=== PATIENT | female | born 1965 | race Two or more races ===

== ENCOUNTER 2024-11-08 17:47 | Emergency (ER) | payer MEDICAID, SELFPAY ==
[2024-11-08 17:48] VITALS: BMI 27.3
[2024-11-08 17:54] VITALS: BP 134/83; PULSE 93; RESP 16; TEMP 37.2; O2SAT 96; BMI 23.3
--- NOTE | 2024-11-08 18:22 | XR_ITS ---
Examination: Knee, right , 3 views Technique: Knee AP, lateral, oblique 3 views Date and time of exam: 1821 hours INDICATIONS: Twisting injury to knee 2 days ago, knee pain FINDINGS: No fracture or dislocation. No foreign body IMPRESSION: No fracture or dislocation
--- NOTE | 2024-11-08 19:11 | EDNOTE_ITS ---
Lower Extremity Injury RME/HPI General Chief Complaint: Extremity Injury, Lower Stated Complaint: RIGHT KNEE PAIN Time Seen by Provider: 11/08/24 18:16 Arrival date/time: 11/08/24 17:47 This is a caseof 59 year old female came in wiht right knee pain s/p twisting incident 2 days ago in [facility] since then patient started to have pain and swelling on the right knee negative swelling on the right lower leg Limitations: no limitations Related Data Previous Rx's ?Medication ?Instructions ?Recorded meloxicam 15 mg tablet 15 mg PO QDAY PRN arthritis pain 11/08/24 #10 tabs tramadol 50 mg tablet 50 mg PO Q6H PRN pain, sever e #12 11/08/24 tabs Allergies Allergy/AdvReac Type Severity Reaction Status Date / Time NKA* Allergy Uncoded 11/08/24 17:50 Review of Systems Review of Systems Systems Reviewed: All systems reviewed, normal except as documented Constitutional Constitutional: Reports system reviewed and no additional complaints, except as documented Eyes Eyes: Reports system reviewed and no additional complaints, except as documented ENT Ears, Nose, Mouth, and Throat: Reports system reviewed and no additional complaints, except as documented and Denies neck pain Cardiovascular Cardiovascular: Reports system reviewed and no additional complaints, except as documented Respiratory Respiratory: Reports system reviewed and no additional complaints, except as documented Genitourinary Genitourinary: Reports system reviewed and no additional complaints, except as documented Musculoskeletal Musculoskeletal: Reports system reviewed and no additional complaints, except as documented, Reports arthralgias, Denies atrophy, Denies back pain, Denies deformity, Denies joint swelling, Reports limited range of motion, Denies loss of height, Denies muscle cramps, Denies muscle weakness, Denies myalgias, Denies neck pain, Denies numbness, Denies radiating pain into limb, Denies stiffness and Denies tingling Integumentary/Breasts Skin/Breast: Reports system reviewed and no additional complaints, except as documented Neurologic Neurologic: Reports system reviewed and no additional complaints, except as documented, Denies numbness and Denies tingling Past Medical History Past Medical History NEUROLOGIC: Negative Neurological Disorders or Seizures CARDIAC: Negative Cardiac Disorders or Congestive Heart Failure RESPIRATORY: Negative Chronic Obstructive Pulmonary Disease (COPD) GASTROINTESTINAL: Negative Gastrointestinal Disorders GENITOURINARY: Negative Genitourinary Disorders or Renal Disease REPRODUCTIVE: Positive Previous Pregnancies MUSCULOSKELETAL: Positive Musculoskeletal Disorders and Fractures (left forearm) ENDOCRINE: Negative Endocrine Disorders, Diabetes Mellitus Type 1 or Diabetes Mellitus Type 2 HEMATOLOGIC: Negative Blood Disorders OTHER HISTORY: Positive Chicken Pox, Measles and Mumps; Negative Autoimmune Disease, Falls, Blood Transfusions, Blood Transfusion Reaction, Anesthesia Reactions or Cancer Family History FAMILY HISTORY: Negative Family Cardiac Disorders Surgical History SURGICAL: Positive Abdominal Surgery, Open Reduction Internal Fixation (left forearm) and Section Social History SMOKING STATUS: Never smoker ED Exam General Limitations: Present no limitations General appearance: Present alert and in no apparent distress Head Head exam: Present atraumatic Eye Eye exam: Present normal appearance, PERRL and EOMI ENT ENT exam: Present normal exam, normal oropharynx and mucous membranes moist Neck Neck exam: Present normal inspection, full ROM and trachea midline Chest Chest inspection: Present normal inspection and symmetric chest wall rise Respiratory Respiratory exam: Present normal lung sounds bilaterally Cardiovascular Cardiovascular exam: Present regular rate, normal rhythm and normal heart sounds Abdominal Exam Abdominal exam: Present soft and normal bowel sounds Extremities Exam Extremities exam: Present normal inspection and full ROM Expanded Lower Extremity Exam Hip/Pelvis exam: Present normal inspection, full ROM and pelvis stable; Absent tenderness, swelling, ecchymosis, deformity, crepitus, dislocation or shortening Knee exam: Present tenderness, swelling and other (Mild to moderate tenderness on palpation in the right anterior knee mild swelling no prepatellar tenderness no effusion noted ROM is limited due to pain motor or sensory reflex were all normal negative Ching sign); Absent abrasion, laceration, ecchymosis, deformity, crepitus, dislocation, erythema, effusion, anterior drawer sign, posterior draw sign, pain with valgus, laxity with valgus, pain with varus or laxity with varus Back Exam Back exam: Present normal inspection and full ROM Neurological Exam Neurological exam: Present alert, oriented X3, CN II-XII intact, reflexes normal and other (unsteady gait due to pain right knee); Absent motor sensory deficit Psychiatric Psychiatric exam: Present normal affect and normal mood Skin Skin exam: Present warm, dry, intact and normal color Course Quality Measures none Orders Category Date Time Status XR knee RT 3V Stat Exams 11/08/24 18:22 Taken Ketorolac Inj [Toradol Inj] Med 11/08/24 19:06 Once 30 mg IM X1 ONE Vital Signs Vital signs: Vital Signs Temperature 98.9 F 11/08/24 17:54 Pulse Rate 93 11/08/24 17:54 Respiratory Rate 16 11/08/24 17:54 Blood Pressure 134/83 H 11/08/24 17:54 Pulse Oximetry (%) 96 11/08/24 17:54 Oxygen Delivery Method Room Air 11/08/24 17:54 Afebrile not tachycardic neck not tachypneic BP stable oxygen saturation 96% not hypoxic Extremity Injury, Lower MDM Narrative MDM Narrative:: This is a caseof 59 year old female came in wiht right knee pain s/p twisting incident 2 days ago in [facility] since then patient started to have pain and swelling on the right knee negative swelling on the right lower leg patient is awake alert oriented not in distress nontoxic looking patient noted to have moderate tenderness on the right anterior knee with mild swelling no crepitation no deformity no redness no cellulitis no prepatellar tenderness no effusion ROM is limited due to pain neurovascular is intact patient have already a knee splint patient is advised to continue using the knee splint for immobilization RICE treatment at home will continue by the patient x-ray showed no fracture no dislocation but with arthritic changes on the right knee patient will follow-up with PCP in 2 days for reevaluation and to be referred to orthopedic surgeon for osteoarthritis and right knee pain for possible MRI to rule out ligament or meniscus injury for any worsening symptoms or any emergent concerns she will return the emergency room immediately or call 911 patient was given Toradol here in the emergency room after 15 minutes patient was reassessed patient is able to stand on the right knee after the medication pain improved patient was discharged with meloxicam as needed for pain and for severe pain patient was prescribed with tramadol Patient was discharged with comfortable condition walking with stable gait. Patient verbalized no further complains explained diagnosis and answered patient question. Patient is comfortable with the proposed management plan including the need to follow up with his/her primary care physician and any specialist if applicable Discussed patient for any urgent condition or worsening sx, He/She needed to go to emergency room immediately or call 911. Patient acknowledge the responsibility to follow up as instructed and to monitor her/his symptoms. For any persistence of the symptoms for more than 3-5 days return precaution advised. Discussed the result of the test and was given printed discharge instruction Patient data External records reviewed:: [facility] previous records Clinical information provided by:: patient Social determinants that could affect healthcare access:: none Patient has the following chronic illnesses:: none How is presenting disease/condition affected by chronic disease/condition?: no chronic disease Evaluation data The following diagnostics were reviewed and interpreted by me:: radiology exam(s) and other (specify) Lab and/or radiology exams considered but not ordered:: Reviewed Interpretation Summary: Reviewed Medications / Prescriptions Medications or Prescriptions considered but not ordered:: Given Medication administrations:: Medication Administration History Ketorolac Tromethamine (Ketorolac Inj 60 Mg/2 Ml Vial) 30 mg IM X1 ONE Stop: 11/08/24 19:07 Given Consultations Consultation(s) initiated? (list below): No Diagnosis Extremity Injury, Lower Differential Diagnosis: other (Knee fracture osteoarthritis knee effusion dislocation) Most likely diagnosis given after review of the tests above:: Knee sprain osteoarthritis Admission Indicated Admission indicated?: not indicated Explain why admission is indicated or not indicated:: Not indicated Admission Request Was there a request for admission?: No Admission Attestation Admission request attestation: Not indicated Disposition Plan Disposition Plan: Discharge Discharge Attestation Discharge Attestation: The patient and all family members were given an opportunity to ask questions and understood the discharge instructions. Discharge instructions specifically effects, indications for sooner follow up or return to the emergency department, and the expected course of current diagnosis. Patient condition: Stable Discharge Plan Plan Patient Disposition: HOME (Self Care) Patient condition on transfer: Stable Prescriptions/Referrals Prescriptions/Med Rec: New meloxicam 15 mg tablet 15 mg PO QDAY PRN (Reason: arthritis pain) Qty: 10 0RF tramadol 50 mg tablet 50 mg PO Q6H PRN (Reason: pain, severe) Qty: 12 0RF Referrals: No Primary/Family,Physician [Primary Care Provider] - In 1 week Problem List Clinical Impression: Pain in right knee, Knee sprain, Osteoarthritis Patient/Caregiver Discharge Instructions Education Materials: Arthritis: Exercise, Knee Pain, ED Knee Sprain, ED Osteoarthritis, ED RICE Additional Instructions: Follow-up with your primary care physician in 2 days for reevaluation and to be referred to orthopedic surgeon for further evaluation and treatment of osteoarthritis right knee for possible MRI to rule out meniscus or ligament injury ice pack and warm compress as needed for pain keep the knee splint for ambulation is advised elevate to decrease swelling worsening symptoms or any emergent concern return to the emergency room immediately or call [phone] 1 Print Language: Frisian Stand Alone Forms: [employer] Award Info., Patient Portal Info Letter PA/[employer] Supervising Physician PA/[employer] Supervising Physician: Dr jamil
[2024-11-08] MEDS: KETOROLAC INJ 60 MG/2 ML VIAL 30 MG IM (19:33)
== END 2024-11-08 19:39 | disposition home or self-care (01) ==
PROVIDERS: Emergency Provider Emergency Medicine
DX: S83.91XA Sprain of unspecified site of right knee, initial encounter (principal); M17.11 Unilateral primary osteoarthritis, right knee; X50.1XXA Overexertion from prolonged static or awkward postures, initial encounter
CPT/HCPCS: 73562; 96372; 99283; J1885

== ENCOUNTER → 2025-01-22 | Outpatient (CLI) | payer MEDICAID, SELFPAY ==
--- NOTE | 2025-01-22 12:00 | XR_ITS ---
Examination: Bone densitometry Date and time of exam:January 22, 2025 1208 hours INDICATIONS: Menopause age 52 calcium one year rheumatoid arthritis diagnosis Technique: Lumbar spine and hip total bone mineralization values of an calculated. Peak reference and age match control results have been displayed. Findings: Lumbar spine total bone mineralization is0.833 gm/cm2. This is 1.9 standard deviations below peak reference. This is 0.6 standard deviations below age-matched controls. Hip total bone mineralization is 0.750 gm/cm2 This is 1.6 standard deviations below peak reference. This is 0.7 standard deviations below age-matched controls Impression: There is osteopenia based on lumbar spine measurements. There is osteopenia based on hip measurements
== END | disposition home or self-care (01) ==
PROVIDERS: PCP Nurse Practitioner Family; Referring Provider Nurse Practitioner Family; Visit Provider Nurse Practitioner Family
DX: M85.89 Other specified disorders of bone density and structure, multiple sites (principal)
CPT/HCPCS: 77080